=== PATIENT | male | born 1945 | race Caucasian/White ===

== ENCOUNTER 2017-07-31 08:45 | Emergency (ER) | payer MEDICARE ==
[2017-07-31 08:47] VITALS: BMI 22.2
[2017-07-31 08:53] VITALS: RESP 20; TEMP 97.5; O2SAT 97
--- NOTE | 2017-07-31 09:10 | C.PDOC ---
History Of Present Illness 72 y/o male presents to ED for evaluation of dark stool noted prior to arrival after having bowel movement. Patient states he wiped himself after bowel movement and did not see blood but stool was dark. 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 Patient denies fever, chills, abdominal pain, blood in stool, nausea, vomiting or any other complaints at this time. Chief Complaint (Nursing): Abdominal Pain History Per: Patient History/Exam Limitations: no limitations Onset/Duration Of Symptoms: Hrs Current Symptoms Are (Timing): Still Present Past Medical History Reviewed: Historical Data, Nursing Documentation, Vital Signs Vital Signs: Last Vital Signs Temp 97.5 F L 07/31/17 08:49 Pulse 61 07/31/17 10:31 Resp 20 07/31/17 10:31 BP 135/86 07/31/17 10:31 Pulse Ox 97 07/31/17 10:31 - Medical History PMH: Bipolar Disorder Surgical History: No Surg Hx Family History: States: No Known Family Hx - Social History Hx Alcohol Use: Yes Hx Substance Use: No - Immunization History Hx Tetanus Toxoid Vaccination: No Hx Influenza Vaccination: No Hx Pneumococcal Vaccination: No Review Of Systems Constitutional: Negative for: Fever, Chills Gastrointestinal: Negative for: Nausea, Vomiting, Diarrhea, Constipation, Hematochezia, Rectal Pain Musculoskeletal: Negative for: Back Pain Skin: Negative for: Rash Physical Exam - Physical Exam Appears: Non-toxic, No Acute Distress Skin: Normal Color, Warm, Dry, No Rash Head: Atraumatic, Normacephalic Oral Mucosa: Moist Cardiovascular: Rhythm Regular Respiratory: Normal Breath Sounds, No Rales, No Rhonchi, No Wheezing Gastrointestinal/Abdominal: Soft, No Tenderness, No Guarding, No Rebound Rectal: Maroon Stool, No Blood Streaked Stool, No Hemorrhoids, No Mass Extremity: Normal ROM, Capillary Refill (<2 seconds) Neurological/Psych: Oriented x3 ED Course And Treatment - Laboratory Results Result Diagrams: 07/31/17 09:23 07/31/17 09:23 O2 Sat by Pulse Oximetry: 97 (RA) Pulse Ox Interpretation: Normal Medical Decision Making Medical Decision Making: Plan: Blood work, ECG, CXR, Disposition - Disposition Referrals: [facility] at [facility] [Outside] Disposition: HOME/ ROUTINE Disposition Time: 14:43 Condition: GOOD Instructions: Normal Exam (ED) Forms: [facility] [employer] (Estonian) Print Language: QATARI - Clinical Impression Clinical Impression: Normal abdominal exam, Normal exam - Scribe Statement The provider has reviewed the documentation as recorded by the Yasmine Frank All medical record entries made by the Domoniqueibsathya were at my direction and personally dictated by me. I have reviewed the chart and agree that the record accurately reflects my personal performance of the history, physical exam, medical decision making, and the department course for this patient. I have also personally directed, reviewed, and agree with the discharge instructions and disposition.
[2017-07-31 09:33] LABS: BASO % 0.4 % (0.0-2.0); EOS % 0.6 % (0.0-4.0); HEMATOCRIT 41.8 % (35.0-51.0); LYMPH # 1.4 K/uL (1.0-4.3); LYMPH % 23.4 % (20.0-40.0); MEAN CELL VOLUME 100.5 fL (80.0-94.0); MEAN CORPUSCULAR HEMOGLOBIN 33.7 pg (27.0-31.0); MEAN CORPUSCULAR HGB CONC 33.5 g/dL (33.0-37.0); MEAN PLATELET VOLUME 8.1 fL (7.2-11.7); MONO # 0.5 K/uL (0.0-0.8); RED CELL DISTRIBUTION WIDTH 12.3 % (11.5-14.5); WHITE BLOOD COUNT 5.8 K/uL (4.8-10.8)
[2017-07-31 10:00] LABS: ALB/GLOB RATIO 1.4 (1.0-2.1); ALKALINE PHOSPHATASE 55 U/L (38-126); ALT/SGPT 43 U/L (21-72); AST/SGOT 27 U/L (17-59); BLOOD UREA NITROGEN 13 mg/dL (9-20); CALCIUM 8.7 mg/dl (8.6-10.4); CARBON DIOXIDE 30 mmol/L (22-30); CHLORIDE 104 mmol/L (98-107); GFR AFRICAN-AMERICAN > 60; GLUCOSE,RANDOM 112 mg/dL (75-110); POTASSIUM 4.2 mmol/L (3.6-5.2); SODIUM 141 mmol/L (132-148)
--- NOTE | 2017-07-31 10:11 | RAD ---
HISTORY: Sepsis Patient COMPARISON: No prior. FINDINGS: LUNGS: No active pulmonary disease. PLEURA: No significant pleural effusion identified, no pneumothorax apparent. CARDIOVASCULAR: Normal. OSSEOUS STRUCTURES: No significant abnormalities. VISUALIZED UPPER ABDOMEN: Normal. OTHER FINDINGS: None. IMPRESSION: No active disease.
[2017-07-31 10:32] VITALS: BP 135/86; PULSE 61
--- NOTE | 2017-08-03 09:37 | CARD ---
APPROVED REPORT EKG Measurement Heart [id number] OR [id number] [id number] <Conclusion> Sinus bradycardia Otherwise normal ECG
== END 2017-07-31 10:41 | disposition home or self-care (01) ==
LOC: C.ER 08:45
DX: Z00.00 Encounter for general adult medical examination without abnormal findings (principal)
CPT/HCPCS: 71010; 80053; 85025; 93005; 99284; G0328

== ENCOUNTER 2018-06-12 19:54 | Emergency (ER) | payer MEDICARE ==
[2018-06-12 19:55] VITALS: BMI 22.2
[2018-06-12 20:43] VITALS: BP 147/84; PULSE 69; RESP 18; TEMP 99.2; O2SAT 97
[2018-06-12] MEDS ORDERED: Tmp-Smz 800 mg-160 mg DS Tab PO STA (20:54)
--- NOTE | 2018-06-12 20:57 | C.PDOC ---
History Of Present Illness 72 y/o male presents to the ED for evaluation of bilateral big toenail pain gradually developed for the past few days. Patient reports he cut his nails too short and now is having pain, concerned for infection. Patient has hx of fungal nail infections. Denies fever, chills, wound discharge, obvious deformity, or weakness to the bilateral feet. Time Seen by Provider: 06/12/18 20:45 Chief Complaint (Nursing): Lower Extremity Problem/Injury History Per: Patient History/Exam Limitations: no limitations Onset/Duration Of Symptoms: Days Current Symptoms Are (Timing): Still Present Past Medical History Reviewed: Historical Data, Nursing Documentation, Vital Signs Vital Signs: Last Vital Signs Temp 99.2 F 06/12/18 20:36 Pulse 69 06/12/18 20:36 Resp 18 06/12/18 20:36 BP 147/84 06/12/18 20:36 Pulse Ox 97 06/12/18 20:36 - Medical History PMH: Bipolar Disorder Denies: Chronic Kidney Disease Family History: States: Unknown Family Hx - Social History Hx Alcohol Use: No Hx Substance Use: No - Immunization History Hx Tetanus Toxoid Vaccination: No Hx Influenza Vaccination: No Hx Pneumococcal Vaccination: No Review Of Systems Except As Marked, All Systems Reviewed And Found Negative. Constitutional: Negative for: Fever, Chills Musculoskeletal: Positive for: Foot Pain (to b/l big toenails) Skin: Positive for: Other (No wound discharge) Neurological: Negative for: Weakness, Numbness, Incoordination Physical Exam - Physical Exam Appears: Well, Non-toxic, No Acute Distress Skin: Normal Color, Warm Extremity: Normal ROM, Capillary Refill (less than 2 sec), No Deformity, No Swelling, Other (Left big toenail partially absent; Right big toenail appears cut short with mild erythema at the margins; no edema, cellulitis, or wound discharge) Pulses: Left Dorsalis Pedis: Normal, Right Dorsalis Pedis: Normal Neurological/Psych: Oriented x3, Normal Speech, Normal Motor, Normal Sensation ED Course And Treatment O2 Sat by Pulse Oximetry: 97 (RA) Pulse Ox Interpretation: Normal Progress Note: On re-eval, pt afebrile, hemodynamicaly stable. Non-toxic, ambulatory in ED. B/L feet: exam c/w early ingrown nail. No edema, no erythema, no flactualnce, no discharge. FAROM, no neurovascular deficits. Neurologicaly intact. Pt advised and ref. to f/u with Podiatry in 1 -2 days for re-eavl. return to Ed if any worsening or new changes. Disposition Counseled Patient/Family Regarding: Diagnosis, Need For Followup, Rx Given - Disposition Referrals: [facility] at [facility] [Outside] Disposition: HOME/ ROUTINE Disposition Time: 20:55 Condition: STABLE Additional Instructions: take medication as prescribed FOLLOW UP WITH PODIATRY CLINIC ON Friday06/15/18 FROM 12 NOON- 3 PM FOR FURTHER EVALUATION AND TREATMENT NEED RETURN TO ED IF ANY WORSENING OR NEW CHANGES. Prescriptions: Sulfamethoxazole/Trimethoprim [Bactrim DS 800 mg-160 mg] 1 tab PO BID #14 tab Instructions: Ingrown Toenail Forms: [facility] (Belarusian) Print Language: ROMANIAN - Clinical Impression Clinical Impression: Ingrowing nail - PA / CHIEF OF STAFF / Resident Statement MD/DO has reviewed & agrees with the documentation as recorded. - Scribe Statement The provider has reviewed the documentation as recorded by the Scribe (Cecelia Enriquez)
[2018-06-12] MEDS ORDERED: Tmp-Smz 800 mg-160 mg DS Tab ONE (21:08)
== END 2018-06-12 21:09 | disposition home or self-care (01) ==
LOC: C.ER 19:54
DX: L60.0 Ingrowing nail (principal)

== ENCOUNTER 2018-07-28 21:31 | Emergency (ER) | payer MEDICARE ==
[2018-07-28 21:31] VITALS: BMI 22.2
[2018-07-28 21:40] VITALS: BP 153/88; PULSE 66; RESP 18; TEMP 98; O2SAT 97
[2018-07-28] MEDS ORDERED: Tdap Vaccine 0.5 ml Vial (10-64 yrs) IM ONE ×2 (22:15→22:21)
--- NOTE | 2018-07-28 22:16 | C.PDOC ---
History Of Present Illness Patient reports that he cut his right thumb on "something metal" yesterday. No other injury. Came in today to get it checked out. Time Seen by Provider: 07/28/18 21:52 Chief Complaint (Nursing): Finger,Hand,&Wrist Past Medical History Reviewed: Historical Data, Nursing Documentation, Vital Signs Vital Signs: Last Vital Signs Temp 98 F 07/28/18 21:36 Pulse 66 07/28/18 21:36 Resp 18 07/28/18 21:36 BP 153/88 H 07/28/18 21:36 Pulse Ox 97 07/28/18 21:36 - Medical History PMH: Bipolar Disorder Denies: Chronic Kidney Disease Family History: States: Unknown Family Hx - Social History Hx Alcohol Use: No Hx Substance Use: No - Immunization History Hx Tetanus Toxoid Vaccination: No Hx Influenza Vaccination: No Hx Pneumococcal Vaccination: No Review Of Systems Except As Marked, All Systems Reviewed And Found Negative. Constitutional: Negative for: Fever Musculoskeletal: Negative for: Hand Pain Skin: Negative for: Rash, Bruising Neurological: Negative for: Weakness Physical Exam - Physical Exam Appears: Well, Non-toxic, No Acute Distress Skin: Normal Color, Warm, Dry, Other (0n5cm superficial laceration to palmar right thumb overlying the distal metacarpal. No active bleeding. No erythema, swelling, or purulent discharge.) Extremity: Normal ROM (of right hand and fingers) Neurological/Psych: Oriented x3 ED Course And Treatment O2 Sat by Pulse Oximetry: 97 Medical Decision Making Medical Decision Making: No intervention necessary at this time as injury occurred over 24 hours ago, and laceration is superficial. Tdap given and patient instructed to return to the ED should he notice any developing signs of infection. Disposition - Disposition Referrals: Non [facility] Provider, [Primary Care Provider] - Disposition Time: 22:20 Condition: GOOD Instructions: Wound Care (DC) Forms: [facility] (Arabic) - Clinical Impression Clinical Impression: Laceration of right thumb
== END 2018-07-28 22:35 | disposition home or self-care (01) ==
LOC: SUPCPDRO 21:31 → C.ER 21:31
DX: S61.011A Laceration without foreign body of right thumb without damage to nail, initial encounter (principal); W45.8XXA Other foreign body or object entering through skin, initial encounter; Z23 Encounter for immunization